=== PATIENT | female | born 1980 | race Caucasian/White ===

== ENCOUNTER 2017-10-22 05:33 | Outpatient (CLI) | payer BC ==
[~2017-10-22] VITALS: Ht 154.9 cm; Wt 56.7 kg
[~2017-10-22 05:33] MED LIST: OCP
[2017-10-22] MEDS ORDERED: VALA500T4 PO (11:40)
[2017-10-22] MEDS ORDERED: MULT-35 PO (11:40)
== END 2017-10-22 11:55 ==
LOC: PREOP 05:33
PROVIDERS: ATTEND Obstetrics & Gynecology
DX: Z01.818 Encounter for other preprocedural examination (principal); N93.8 Other specified abnormal uterine and vaginal bleeding; R19.09 Other intra-abdominal and pelvic swelling, mass and lump; D64.9 Anemia, unspecified

== ENCOUNTER 2017-10-24 10:56 | Day surgery (SDC) | payer BC ==
[~2017-10-24] VITALS: Ht 154.9 cm; Wt 56.7 kg
[~2017-10-24 10:56] MED LIST changes: +MULT-35 PO; +VALA500T4 PO
[2017-10-24] MEDS ORDERED: ceFAZolin INJECTION 1,000 MG in NS (IVPB) 50 ML IV ONE (11:15)
[2017-10-24 11:20] VITALS: BP 118/83
[2017-10-24] MEDS ORDERED: proPOfol 200 MG/20 ML (DIPRIVAN) VIAL IV ONE (11:41)
[2017-10-24] MEDS ORDERED: LIDOCAINE PF 2% 5 ML (XYLOCAINE) VIAL ONE (11:41)
[2017-10-24] MEDS ORDERED: SEVOFLURANE (ULTANE) 15 ML INHAL SOLN ONE (11:41)
[2017-10-24] MEDS ORDERED: ONDANSETRON 4 MG/2 ML (SDV) Z0FRAN ONE (11:41)
[2017-10-24] MEDS ORDERED: MIDAZOLAM 2 MG/2 ML (VERSED) VIAL ONE (11:41)
[2017-10-24] MEDS ORDERED: fentaNYL INJECTION 100 MCG/2 ML AMP ONE (11:41)
[2017-10-24] MEDS ORDERED: DEXAMETHASONE 10 MG/ML (DECADRON) 1 ML VIAL ONE (11:41)
[2017-10-24] MEDS: LACTATED RINGERS 1,000 ML IV PRN ×2 (11:50→13:56)
[2017-10-24] MEDS ORDERED: D5 LR IV SOLUTION 1,000 ML IV SCH (13:25)
--- NOTE | 2017-10-24 13:25 | Progress Note-Pre Operative ---
Pre-Operative Progress Note H&P Reviewed The H&P was reviewed, patient examined and no changes noted. Date Seen by Provider: Oct 24, 2017 Time Seen by Provider: 13:24 Date H&P Reviewed: Oct 24, 2017 Time H&P Reviewed: 13:24 Pre-Operative Diagnosis: DUB/Mass in uterus TOMMY LAWRENCE MD Oct 24, 2017 1:25 pm
--- NOTE | 2017-10-24 13:28 | Discharge Instructions ---
Discharge Instructions Discharge Medications New, Converted or Re-Newed RX: RX on Chart Patient Instructions Patient Instructions: as directed Return to The Hospital For: as directed Activity & Diet Discharge Diet: No Restrictions Activity as Tolerated: Yes Orders-Post D/C & Referrals Follow Up Appt: Call to make follow up appt. for patient in 2 weeks. Activity: as tolerated. Diet: As tolerated-Clear Liquids only if nauseated. May swim, shower or tub bathe as desired. Patient to return to the clinic as soon as possible for: Temperature greater than 101F, Severe Pain, Foul discharge from incision or vagina, Excessive Bleeding (more than a period). TOMMY LAWRENCE MD Oct 24, 2017 1:28 pm
[2017-10-24] MEDS ORDERED: ESTROGENS CONJ IV 25 MG/5 ML (PREMARIN) VIAL IVP ONE (13:30)
[2017-10-24] MEDS ORDERED: oxyCODONE/APAP 5/325MG (PERCOCET 5) TABLET PO PRN (13:30)
[2017-10-24] MEDS ORDERED: KETOROLAC 30 MG/ML VIAL IVP ONE (13:30)
[2017-10-24] MEDS ORDERED: PROMETHAZINE INJ 25 MG/ML (PHENERGAN) AMP IM ONE (13:30)
[2017-10-24] MEDS ORDERED: ONDANSETRON 4 MG/2 ML (SDV) Z0FRAN IVP PRN (13:30)
[2017-10-24] MEDS ORDERED: MEPERIDINE (DEMEROL) INJ 100 MG/ML IM ONE (13:30)
[2017-10-24] MEDS ORDERED: OXYC-471 PO (13:33)
[2017-10-24] MEDS ORDERED: morphine INJ 10 MG/ML 1ML (SYR OR VIAL) IVP PRN (14:15)
--- NOTE | 2017-10-24 14:19 | Progress Note-Post Operative ---
Post-Operative Progess Note Surgeon (s)/Spot Washer (s) Surgeon TOMMY LAWRENCE MD Spot Washer: none Pre-Operative Diagnosis DUB/Mass in uterus Post-Operative Diagnosis same with path pending Procedure & Operative Findings Date of Procedure 10/24/17 Procedure Performed/Findings IUD removal then Hysteroscopy with directed biopsy and D&C Anesthesia Type GETA Estimated Blood Loss Estimated blood loss (mL): min Specimens/Packing Specimens Removed Directed biopsies and endometrial curettings Packing: none TOMMY LAWRENCE MD Oct 24, 2017 2:19 pm
[2017-10-24 15:10] VITALS: BP 128/97
[2017-10-24 15:15] VITALS: BP 132/90
[2017-10-24 15:30] VITALS: BP 132/97
[2017-10-24 15:40] VITALS: BP 135/97
[2017-10-24 16:10] VITALS: BP 137/93
--- NOTE | 2017-10-24 16:45 | OPERATIVE REPORT ---
DATE OF SERVICE: 10/24/2017 PREOPERATIVE DIAGNOSES: Dysfunctional uterine bleeding and intrauterine mass. POSTOPERATIVE DIAGNOSES: Dysfunctional uterine bleeding and intrauterine mass with pathology pending, but would likely endometrial polyp and/or submucosal fibroid. OPERATIVE PROCEDURES: Hysteroscopy with directed biopsy and D and C. OPERATIVE DESCRIPTION: With the patient in the supine position under satisfactory general anesthesia, she was repositioned in the dorsal lithotomy position in the [facility] stirrups then prepped and draped in the usual fashion for vaginal surgery. Urinary bladder was drained with a straight catheter. A weighted speculum placed in the posterior fornix of vagina, cervix exposed and grasped anteriorly with single tooth tenaculum. Uterus was sounded to 9.5 cm with uterine sound. The cervix was then serially dilated with Demar dilators and then a hysteroscope was introduced and using LR as a distending medium, the endometrial cavity was examined. There was a protruding mass from the posterior uterine floor just distal and central from the right tubal ostium. There was a polypoid lesion emanating from the anterior lateral uterine wall just distal to the right tubal ostium as well. The polypoid mass was removed directly and sent to pathology labeled separately. The submucosal appearing prominence was biopsied in several pieces. This ended up being consistent with a possible uterine fibroid, pathology again is pending. The endometrial cavity was then sharply curettaged in all 4 quadrants to good uterine cry with removal of an additional aliquot of tissue. The hysteroscope was reintroduced and all blood clot and debris was evacuated from the uterus. There was no significant bleeding and no remaining abnormal appearing pathology. The hysteroscope was removed as was the tenaculum. There was some bleeding from the puncture sites. These were touched with silver nitrate to effect hemostasis. With hemostasis assured, sponge and needle counts correct. Estimated blood loss was minimal. The procedure was complete. The patient was uneventfully awakened from her general anesthesia and transferred to recovery room in stable condition with plans for discharge home PAR. Job ID: [id number] DocumentID: [id number] Dictated Date: 10/24/2017 14:01:32 Pattern Scratcher Date: 10/24/2017 16:45:00 Dictated By: TOMMY LAWRENCE MD
== END 2017-10-24 16:10 | disposition home or self-care (01) ==
LOC: SDC 10:56
PROVIDERS: ATTEND Obstetrics & Gynecology
DX: N93.8 Other specified abnormal uterine and vaginal bleeding (principal); D25.0 Submucous leiomyoma of uterus; N84.1 Polyp of cervix uteri
CPT/HCPCS: 36415; 84703; 87081; 88305

== ENCOUNTER 2018-03-25 08:00 | Outpatient (RCR) | payer BC ==
[~2018-03-25 08:00] MED LIST changes: +OXYC-471 PO
== END 2018-05-24 | disposition home or self-care (01) ==
PROVIDERS: ATTEND Family Medicine
DX: M54.2 Cervicalgia (principal); R51 Headache

== ENCOUNTER → 2018-09-02 | Outpatient (CLI) | payer BC ==
--- NOTE | 2018-09-02 21:23 | Diagnostic Imaging Report ---
INDICATION: Routine screening. Comparison is made with prior mammogram from 06/20/2014. 2-D and 3-D bilateral screening mammography was performed with a Computer Aided Detection (CAD) system. FINDINGS: Both breasts remain heterogeneously dense, limiting the sensitivity of mammography. The parenchymal pattern is stable. No mass or malignant-appearing microcalcifications are seen. The axillae are unremarkable. IMPRESSION: No mammographic features suspicious for malignancy are identified. ACR BI-RADS Category 1: Negative. Result letter will be mailed to the patient. Note: At least 10% of breast cancer is not imaged by mammography. Dictated by: Dictated on workstation # [id number]
== END ==
LOC: RAD 07:12
PROVIDERS: ATTEND Obstetrics & Gynecology
DX: Z12.31 Encounter for screening mammogram for malignant neoplasm of breast (principal)
CPT/HCPCS: 77067

== ENCOUNTER 2019-01-14 05:52 | Outpatient (CLI) | payer BC ==
[~2019-01-14] VITALS: Ht 154.9 cm; Wt 61.2 kg
[2019-01-14] MEDS ORDERED: MULT-178 PO (13:18)
== END 2019-01-14 13:34 | disposition home or self-care (01) ==
LOC: PREOP 05:52
PROVIDERS: ATTEND Obstetrics & Gynecology
DX: Z01.818 Encounter for other preprocedural examination (principal)

== ENCOUNTER 2019-01-15 13:15 | Day surgery (SDC) | payer BC ==
[2019-01-15] VITALS (8 sets, daily range): BP systolic 90–115; BP diastolic 58–95
[~2019-01-15] VITALS: Ht 154.9 cm; Wt 61.2 kg
[~2019-01-15 13:15] MED LIST changes: +MULT-178 PO
[2019-01-15] MEDS ORDERED: fentaNYL INJECTION 100 MCG/2 ML AMP ONE (13:54)
[2019-01-15] MEDS ORDERED: MIDAZOLAM 2 MG/2 ML (VERSED) VIAL ONE (14:01)
[2019-01-15] MEDS ORDERED: proPOfol 200 MG/20 ML (DIPRIVAN) VIAL IV ONE (14:09)
[2019-01-15] MEDS ORDERED: LIDOCAINE PF 2% 5 ML (XYLOCAINE) VIAL ONE (14:09)
[2019-01-15] MEDS ORDERED: ONDANSETRON 4 MG/2 ML (SDV) Z0FRAN ONE (14:09)
[2019-01-15] MEDS ORDERED: DEXAMETHASONE 10 MG/ML (DECADRON) 1 ML VIAL ONE (14:09)
[2019-01-15] MEDS ORDERED: LACTATED RINGERS 1,000 ML IV PRN (14:10)
[2019-01-15 14:11] LABS: BASOPHILS % (AUTO) 0 % (0-10); EOSINOPHILS # (AUTO) 0.1 10^3/uL (0.0-0.3); EOSINOPHILS % (AUTO) 2 % (0-10); HEMATOCRIT 38 % (35-52); HEMOGLOBIN 13.1 G/DL (11.5-16.0); LYMPHOCYTES # (AUTO) 1.9 X 10^3 (1.0-4.0); LYMPHOCYTES % (AUTO) 31 % (12-44); MEAN CORPUSCULAR HEMOGLOBIN 30 PG (25-34); MEAN CORPUSCULAR HGB CONC 34 G/DL (32-36); MEAN CORPUSCULAR VOLUME 89 FL (80-99); MEAN PLATELET VOLUME 9.7 FL (7.4-10.4); MONOCYTES # (AUTO) 0.5 X 10^3 (0.0-1.0); MONOCYTES % (AUTO) 8 % (0-12); NEUTROPHILS # (AUTO) 3.5 X 10^3 (1.8-7.8); NEUTROPHILS % (AUTO) 59 % (42-75); PLATELET COUNT 230 10^3/uL (130-400); RED CELL DISTRIBUTION WIDTH 12.2 % (10.0-14.5)
[2019-01-15] MEDS ORDERED: ceFAZolin INJECTION 1,000 MG in WATER (STERILE) FOR INJECTION 10 ML IV ONE (14:15)
--- NOTE | 2019-01-15 14:49 | Progress Note-Pre Operative ---
Pre-Operative Progress Note H&P Reviewed The H&P was reviewed, patient examined and no changes noted. Date Seen by Provider: Jan 15, 2019 Time Seen by Provider: 14:30 Date H&P Reviewed: Jan 15, 2019 Time H&P Reviewed: 14:30 Pre-Operative Diagnosis: missed TOMMY Araya MD Jan 15, 2019 14:49
[2019-01-15] MEDS ORDERED: D5 LR IV SOLUTION 1,000 ML IV SCH (14:50)
--- NOTE | 2019-01-15 14:50 | Progress Note-Post Operative ---
Post-Operative Progess Note Surgeon (s)/Overcoiler (s) Surgeon TOMMY LAWRENCE MD Overcoiler: no Pre-Operative Diagnosis missed ab Post-Operative Diagnosis same Procedure & Operative Findings Date of Procedure 01/15/19 Procedure Performed/Findings D&C obstetric Anesthesia Type geta Estimated Blood Loss Estimated blood loss (mL): 150 Specimens/Packing Specimens Removed POC TOMMY LAWRENCE MD Jan 15, 2019 14:50
[2019-01-15] MEDS ORDERED: SEVOFLURANE (ULTANE) 15 ML INHAL SOLN ONE (14:52)
--- NOTE | 2019-01-15 14:52 | Discharge Instructions ---
Discharge Instructions Activity & Diet Discharge Diet: No Restrictions Activity as Tolerated: No Orders-Post D/C & Referrals Follow Up Appt: Call to make follow up appt. for patient in 4 weeks. Activity: Rest for 24 hours, than as tolerated. Diet: As tolerated-Clear Liquids only if nauseated. shower or tub bathe as desired. No driving for 24 hours, no alcoholic beverages for 24 hours, and nothing per vagina (no tampons, douching, or intercoarse) for 2 weeks. Patient to return to the clinic as soon as possible for: Temperature greater than 101F, Severe Pain, Foul discharge from incision or vagina, Excessive Bleeding (more than a period). TOMMY LAWRENCE MD Jan 15, 2019 14:52
[2019-01-15] MEDS ORDERED: KETOROLAC 30 MG/ML VIAL ONE (14:57)
[2019-01-15] MEDS ORDERED: morphine INJ 10 MG/ML 1ML (SYR OR VIAL) IVP ONE (15:00)
[2019-01-15] MEDS ORDERED: ONDANSETRON 4 MG/2 ML (SDV) Z0FRAN IVP PRN ×2 (15:00)
[2019-01-15] MEDS ORDERED: MEPERIDINE (DEMEROL) INJ 50 MG/ML IVP ONE (15:00)
[2019-01-15] MEDS ORDERED: MEPERIDINE (DEMEROL) INJ 100 MG/ML IM ONE (15:00)
[2019-01-15] MEDS ORDERED: PROMETHAZINE INJ 25 MG/ML (PHENERGAN) AMP IM ONE (15:00)
[2019-01-15] MEDS ORDERED: KETOROLAC 30 MG/ML VIAL IVP ONE (15:00)
[2019-01-15] MEDS ORDERED: oxyCODONE/APAP 5/325MG (PERCOCET 5) TABLET PO PRN (15:00)
--- NOTE | 2019-01-28 10:33 | History & Physical ---
History and Physical Date Seen by Provider: Jan 15, 2019 Time Seen by Provider: 00:00 This patient was seen in my clinic on 01-12-19 and found to have a missed AB. records from that date include the entire current H&P for this patient. In addition an H&P from 08-10-18 is included in this record and is a complete H&P for this patient. The PN records included document any and all interim changes for this patient from the H&P of 08-10-18 thru 01-12-19. Patient is admitted via OP surgery for D&C treatment for her missed AB. I have review both the H&P from 08-10-18 and the complete H&P constituted by the [facility] record that was current and up to date through 01-12-19. missed AB Allergies and Home Medications Allergies Coded Allergies: Sulfa (Sulfonamide Antibiotics) (Verified Allergy, Severe, ANAPHYLAXIS, 01/14/19) Home Medications Multivitamin 1 Each Tablet, 1 EACH PO DAILY, (Reported) Patient Home Medication List Home Medication List Reviewed: Yes TOMMY LAWRENCE MD Jan 28, 2019 10:33
--- NOTE | 2019-01-28 15:37 | OPERATIVE REPORT ---
DATE OF SERVICE: 01/15/2019 PREOPERATIVE DIAGNOSIS: Missed . POSTOPERATIVE DIAGNOSIS: Missed . OPERATIVE PROCEDURE: D and C for missed AB. OPERATIVE DESCRIPTION: With the patient in the supine position under satisfactory general anesthesia, she was repositioned in the dorsal lithotomy position in the [facility] stirrups and then prepped and draped in the usual fashion for vaginal surgery. The urinary bladder was drained with Gill catheter. A weighted speculum was placed in the posterior fornix of vagina, the cervix exposed and grasped anteriorly with single tooth tenaculum. Uterus was sounded to 9.5 to 10 cm with uterine sound and then the cervix was then serially dilated with Demar dilators to a #20 Demar. A #9 curved suction curette was introduced and the uterine cavity curettaged with removal of a fairly moderate amount of trophoblastic and decidual appearing tissue, some blood clot, amniotic fluid and debris. The endometrial cavity was sharply curettaged in all 4 quadrants to a good uterine cry. The uterine cavity was evacuated a final time with suction curette. The tenaculum was then removed. There was no bleeding from the cervical os. There was no bleeding from the puncture sites. At this point, the procedure was complete. Sponge and needle counts were correct. Estimated blood loss was around 150 mL. The patient tolerated the procedure well and was uneventfully awakened from her general anesthesia and transferred to the recovery room in stable condition with plans for discharge home PAR. Job ID: [id number] DocumentID: [id number] Dictated Date: 01/28/2019 10:57:33 Desk Operator Date: 01/28/2019 15:35:53 Dictated By: TOMMY LAWRENCE MD
== END 2019-01-15 16:30 | disposition home or self-care (01) ==
LOC: SDC 13:15
PROVIDERS: ATTEND Obstetrics & Gynecology
DX: O73.1 Retained portions of placenta and membranes, without hemorrhage (principal); O02.1 Missed abortion; I69.359 Hemiplegia and hemiparesis following cerebral infarction affecting unspecified side; Z88.2 Allergy status to sulfonamides; Z79.899 Other long term (current) drug therapy
CPT/HCPCS: 36415; 85025; 86850; 86900; 86901; 87081; 88305

== ENCOUNTER → 2019-11-17 | Outpatient (CLI) | payer BC ==
--- NOTE | 2019-11-17 11:36 | Diagnostic Imaging Report ---
INDICATION: Routine screening. Comparison is made with prior exam from 09/02/2018 and 06/20/2014. 2-D and 3-D bilateral screening mammography was performed with CAD. Both breasts remain heterogeneously dense, limiting the sensitivity of mammography. The parenchymal pattern is stable. No mass or malignant appearing microcalcifications are seen. Axillae are unremarkable. IMPRESSION: BI-RADS Category 1 No mammographic features suspicious for malignancy are identified. ACR BI-RADS Category 1: Negative. Result letter will be mailed to the patient. Note: At least 10% of breast cancer is not imaged by mammography. Dictated by: Dictated on workstation # [id number]
== END ==
LOC: RAD 09:21
PROVIDERS: ATTEND Obstetrics & Gynecology
DX: Z12.31 Encounter for screening mammogram for malignant neoplasm of breast (principal)
CPT/HCPCS: 77063; 77067

== ENCOUNTER → 2021-01-26 | Outpatient (CLI) | payer BC ==
[~2021-01-26] MED LIST changes: -OXYC-471 PO; +OXYC1TAB11 PO
--- NOTE | 2021-01-26 10:58 | Diagnostic Imaging Report ---
INDICATION: Routine screening. Comparison is made with prior mammogram from 11/17/2019 and 09/02/2018. 2-D and 3-D bilateral screening mammography was performed with CAD. Both breasts remain heterogeneously dense, limiting the sensitivity of mammography. The parenchymal pattern is stable. No mass is identified. No malignant-appearing microcalcifications are seen. Axillae are unremarkable. IMPRESSION: BI-RADS Category 1 No mammographic features suspicious for malignancy are identified. ACR BI-RADS Category 1: Negative. Result letter will be mailed to the patient. Note: At least 10% of breast cancer is not imaged by mammography. Dictated by: Dictated on workstation # [id number]
== END ==
LOC: RAD 07:33
PROVIDERS: ATTEND Obstetrics & Gynecology
DX: Z12.31 Encounter for screening mammogram for malignant neoplasm of breast (principal)
CPT/HCPCS: 77063; 77067

== ENCOUNTER 2021-05-10 09:11 | Outpatient (RCR) | payer BC | END 2021-05-11 | disposition home or self-care (01) | PROVIDERS: ATTEND Family Medicine | DX: M54.2 Cervicalgia (principal); M25.512 Pain in left shoulder; M25.511 Pain in right shoulder; R51.9 Headache, unspecified ==

== ENCOUNTER 2021-06-07 08:00 | Outpatient (RCR) | payer BC | END 2021-06-11 | disposition home or self-care (01) | PROVIDERS: ATTEND Family Medicine | DX: M54.2 Cervicalgia (principal); M25.519 Pain in unspecified shoulder; R51.9 Headache, unspecified ==

== ENCOUNTER 2021-06-27 08:48 | Outpatient (RCR) | payer BC | END 2021-07-09 | disposition home or self-care (01) | PROVIDERS: ATTEND Family Medicine | DX: M54.2 Cervicalgia (principal); M25.519 Pain in unspecified shoulder; R51.9 Headache, unspecified ==

== ENCOUNTER 2021-08-03 08:00 | Outpatient (RCR) | payer BC | END 2021-08-09 | disposition home or self-care (01) | PROVIDERS: ATTEND Family Medicine | DX: M54.2 Cervicalgia (principal); M25.519 Pain in unspecified shoulder; R51.9 Headache, unspecified ==

== ENCOUNTER 2021-08-10 08:04 | Outpatient (RCR) | payer BC | END 2021-08-10 10:25 | disposition home or self-care (01) | PROVIDERS: ATTEND Family Medicine | DX: M54.2 Cervicalgia (principal); M25.519 Pain in unspecified shoulder; R51.9 Headache, unspecified ==

== ENCOUNTER → 2021-08-13 | Outpatient (CLI) | payer BC ==
--- NOTE | 2021-08-13 09:38 | Diagnostic Imaging Report ---
INDICATION: Chest pain PA and lateral chest Heart size and pulmonary vascularity are normal. Lungs are clear. There are no effusions or pneumothoraces. IMPRESSION: No acute abnormalities in the chest Dictated by: Dictated on workstation # [id number]
== END ==
LOC: CARD 09:30
PROVIDERS: ATTEND Family Medicine
DX: R07.89 Other chest pain (principal); Z86.16 Personal history of COVID-19
CPT/HCPCS: 71046; 93306

== ENCOUNTER → 2021-08-17 | Outpatient (CLI) | payer BC ==
[~2021-08-17] MED LIST changes: +HOLD METFORMIN - RECEIVED CONTRAST 20 ML VIAL IV SCH; +IOHEXOL 350 MG/ML 100 ML (OMNIPAQUE 350) VIAL IV ONE; +NS 100 ML (IVPB) BAG IV ONE
[2021-08-17] MEDS: CATHETER FLUSH 10 ML SYR IV PRN ×2 (10:01→10:03)
--- NOTE | 2021-08-17 10:45 | Diagnostic Imaging Report ---
EXAMINATION: CT angiography of the chest. TECHNIQUE: Contrast enhanced thin section helical images were obtained through the chest with intravenous contrast timed for the optimal opacification of the arterial structures per CTA protocol. Post-processing, reconstructions and interpretation of angiographic images of the vessels was performed. 3D MIP reconstructions were performed and reviewed. All CT scans use one or more of the following dose optimizing techniques: automated exposure control, MA and/or KvP adjustment based on a patient size and exam type, or iterative reconstruction. HISTORY: Chest pain after Covid infection. COMPARISON: None available. FINDINGS: Vascular: No filling defects within the pulmonary arteries. Thoracic aorta is normal in caliber. Thyroid: The thyroid is normal. Mediastinum: Heart size is normal without significant pericardial effusion. No suspicious lymphadenopathy. Lungs and airways: The lungs are clear without consolidation, pleural effusion, or pneumothorax. The airways are normal. Upper abdomen: The subphrenic structures are normal. Musculoskeletal: No suspicious osseous lesion or compression fracture. IMPRESSION: 1. No findings of pulmonary embolus or other acute abnormality in the chest. Dictated by: Dictated on workstation # [id number]
== END ==
LOC: CARD 10:00
PROVIDERS: ATTEND Family Medicine
DX: R07.89 Other chest pain (principal); Z86.16 Personal history of COVID-19
CPT/HCPCS: 71275

== ENCOUNTER → 2021-08-28 | Outpatient (CLI) | payer BC ==
[~2021-08-28] MED LIST changes: -HOLD METFORMIN - RECEIVED CONTRAST 20 ML VIAL IV SCH; -IOHEXOL 350 MG/ML 100 ML (OMNIPAQUE 350) VIAL IV ONE; -NS 100 ML (IVPB) BAG IV ONE; +RT-ALBUTEROL SULF 2.5 MG/3 ML PRE-MIX VIAL INH ONE
== END ==
LOC: RT 09:15
PROVIDERS: ATTEND Nurse Practitioner Family
DX: R09.1 Pleurisy (principal); R06.09 Other forms of dyspnea; Z86.16 Personal history of COVID-19
CPT/HCPCS: 94060; 94726; 94729

== ENCOUNTER 2021-10-23 11:01 | Day surgery (SDC) | payer BC ==
[2021-10-23] VITALS (9 sets, daily range): BP systolic 80–125; BP diastolic 53–92
[~2021-10-23] VITALS: Ht 154.9 cm; Wt 63.6 kg
[~2021-10-23 11:01] MED LIST changes: -RT-ALBUTEROL SULF 2.5 MG/3 ML PRE-MIX VIAL INH ONE
[2021-10-23] MEDS ORDERED: fentaNYL INJ 100 MCG/2 ML AMP ONE (11:44)
[2021-10-23] MEDS ORDERED: MIDAZOLAM 2 MG/2 ML (VERSED) VIAL ONE (11:44)
[2021-10-23] MEDS ORDERED: proPOfol 200 MG/20 ML (DIPRIVAN) VIAL IV ONE (11:44)
[2021-10-23] MEDS ORDERED: LIDOCAINE PF 2% 5 ML (XYLOCAINE) VIAL ONE (11:44)
[2021-10-23] MEDS ORDERED: ONDANSETRON 4 MG/2 ML (SDV) Z0FRAN ONE (11:44)
[2021-10-23] MEDS ORDERED: ceFAZolin INJECTION 1,000 MG VIAL IV ONE (11:45)
[2021-10-23] MEDS ORDERED: LACTATED RINGERS 1,000 ML IV PRN (11:45)
[2021-10-23] MEDS ORDERED: ceFAZolin INJECTION 1,000 MG ONE (12:05)
[2021-10-23 12:07] LABS: BASOPHILS % (AUTO) 1 % (0-10); EOSINOPHILS # (AUTO) 0.1 10^3/uL (0.0-0.3); EOSINOPHILS % (AUTO) 2 % (0-10); HEMATOCRIT 36 % (35-52); HEMOGLOBIN 12.4 g/dL (11.5-16.0); LYMPHOCYTES # (AUTO) 1.7 10^3/uL (1.0-4.0); LYMPHOCYTES % (AUTO) 33 % (12-44); MEAN CORPUSCULAR HEMOGLOBIN 31 pg (25-34); MEAN CORPUSCULAR HGB CONC 34 g/dL (32-36); MEAN CORPUSCULAR VOLUME 90 fL (80-99); MEAN PLATELET VOLUME 9.7 fL (9.0-12.2); MONOCYTES # (AUTO) 0.5 10^3/uL (0.0-1.0); MONOCYTES % (AUTO) 9 % (0-12); NEUTROPHILS # (AUTO) 2.9 10^3/uL (1.8-7.8); NEUTROPHILS % (AUTO) 55 % (42-75); PLATELET COUNT 204 10^3/uL (130-400); WHITE BLOOD COUNT 5.2 10^3/uL (4.3-11.0)
--- NOTE | 2021-10-23 12:11 | Progress Note-Pre Operative ---
Pre-Operative Progress Note H&P Reviewed The H&P was reviewed, patient examined and no changes noted. Date Seen by Provider: Oct 23, 2021 Time Seen by Provider: 12:11 Date H&P Reviewed: Oct 23, 2021 Time H&P Reviewed: 12:11 Pre-Operative Diagnosis: Blighted ovum/missed AB TOMMY LAWRENCE MD Oct 23, 2021 12:11
--- NOTE | 2021-10-23 12:12 | Progress Note-Post Operative ---
Post-Operative Progess Note Surgeon (s)/Student Services Coordinator (s) Surgeon TOMMY LAWRENCE MD Student Services Coordinator: None Pre-Operative Diagnosis Blighted ovum/missed AB Post-Operative Diagnosis Same with pathology pending Procedure & Operative Findings Date of Procedure 10/23/21 Procedure Performed/Findings D&C for first trimester missed AB/viable Anesthesia Type General Estimated Blood Loss Estimated blood loss (mL): 100 cc Specimens/Packing Specimens Removed Uterine contents/products of conception TOMMY LAWRENCE MD Oct 23, 2021 12:12
--- NOTE | 2021-10-23 12:14 | Discharge Inst-Surgical ---
Discharge Inst-Surgical Depart Medication/Instructions New, Converted or Re-Newed RX: Other Consults/Follow Up Patient Instructions: As directed Orders & Referrals Follow Up Appt: Call to make follow up appt. for patient in 2 weeks. Activity: Rest for 24 hours, than as tolerated. Patient may use her own Motrin/ibuprofen up to 800 mg every 6 hours as needed cramps Diet: As tolerated shower or tub bathe as desired. No driving for 24 hours, no alcoholic beverages for 24 hours, and nothing per vagina (no tampons, douching, or intercoarse) for 2 weeks. Patient to return to the clinic as soon as possible for: Temperature greater than 101F, Severe Pain, Foul discharge from incision or vagina, Excessive Bleeding (more than a period). Activity Activity as Tolerated: No Diet Discharge Diet: No Restrictions TOMMY LAWRENCE MD Oct 23, 2021 12:14
[2021-10-23] MEDS ORDERED: ONDANSETRON 4 MG/2 ML (SDV) Z0FRAN IVP PRN ×2 (12:15→12:45)
[2021-10-23] MEDS ORDERED: fentaNYL INJ 100 MCG/2 ML AMP IVP PRN (12:15)
[2021-10-23] MEDS ORDERED: D5 LR IV SOLUTION 1,000 ML IV SCH (12:15)
[2021-10-23] MEDS ORDERED: oxyCODONE/APAP 5/325MG (PERCOCET 5) TABLET PO PRN (12:15)
[2021-10-23] MEDS ORDERED: KETOROLAC 30 MG/ML VIAL IVP ONE (12:15)
[2021-10-23] MEDS ORDERED: methylPREDNISolone 125 MG (Solu-MEDROL) VIAL ONE (12:17)
[2021-10-23] MEDS ORDERED: SEVOFLURANE (ULTANE) 15 ML INHAL SOLN ONE (12:32)
[2021-10-23] MEDS ORDERED: morphine INJ 10 MG/ML 1ML (SYR OR VIAL) IVP ONE (12:45)
--- NOTE | 2021-10-23 12:53 | Anesthesia-General Post-Op ---
General Patient Condition Mental Status/LOC: Same as Preop Cardiovascular: Satisfactory Nausea/Vomiting: Absent Respiratory: Satisfactory Pain: Controlled Complications: Absent Post Op Complications Complications None Follow Up Care/Instructions Patient Instructions None needed. Anesthesia/Patient Condition Patient Condition Patient is doing well in PACU, no complaints, stable vital signs, no apparent adverse anesthesia problems. ZOYA EPPS DO Oct 23, 2021 12:53
--- NOTE | 2021-10-23 23:51 | OPERATIVE REPORT ---
DATE OF SERVICE: 10/23/2021 PREOPERATIVE DIAGNOSES: Missed /blighted ovum in first trimester. POSTOPERATIVE DIAGNOSES: Missed /blighted ovum in first trimester. OPERATIVE PROCEDURE: D and C for surgical treatment of a missed . OPERATIVE DESCRIPTION: With the patient in supine position under satisfactory general anesthesia, she was repositioned in dorsal lithotomy position [facility] and prepped and draped in usual fashion for vaginal surgery. Urinary bladder was drained with a straight catheter. A weighted speculum placed in posterior fornix of vagina, cervix exposed and grasped anteriorly with single tooth tenaculum. Uterus was sounded to 14 cm with uterine sound. The cervix was then serially dilated with Demar dilators to accommodate a #9 Hegar dilator and #9 curved suction curette was then introduced and large amount of trophoblastic and decidual appearing tissue as well as blood clot, amniotic fluid and debris was evacuated. The endometrial cavity was then sharply curettaged in all 4 quadrants to good uterine cry. The curved suction curette was reintroduced and all blood clot and debris evacuated from the uterine cavity. The suction curette was removed. There was no bleeding from the cervical os. The tenaculum was removed. There was no bleeding from the right puncture site puncture site was oozing, so that was touched with silver nitrate to effect hemostasis, now with hemostasis assured. Sponge and needle counts correct. The procedure was terminated. The operative instrument and sponge counts were complete and correct. Blood loss was around 100 mL. The patient tolerated the procedure well and was transferred to recovery room after being uneventfully awakened from her general anesthesia. The patient tolerated the procedure well. Job ID: [id number] DocumentID: [id number] Dictated Date: 10/23/2021 13:23:04 Art Dealer Date: 10/23/2021 23:50:22 Dictated By: TOMMY LAWRENCE MD
== END 2021-10-23 14:22 | disposition home or self-care (01) ==
LOC: SDC 11:01
PROVIDERS: ATTEND Obstetrics & Gynecology
DX: O02.1 Missed abortion (principal); Z87.891 Personal history of nicotine dependence
CPT/HCPCS: 36415; 85025; 87081

== ENCOUNTER → 2022-04-03 | Outpatient (CLI) | payer BC ==
--- NOTE | 2022-04-03 09:43 | Diagnostic Imaging Report ---
INDICATION: Routine screening. Comparison is made with prior mammogram 01/26/2021 and 11/17/2019. 2-D and 3-D bilateral screening mammography was performed with CAD. Both breasts are heterogeneously dense, limiting the sensitivity of mammography. The parenchymal pattern is stable. No mass or malignant-appearing microcalcifications are seen. Axillae are unremarkable. IMPRESSION: No mammographic features suspicious for malignancy are identified. ACR BI-RADS Category 1: Negative. Result letter will be mailed to the patient. Note: At least 10% of breast cancer is not imaged by mammography. BI-RADS Category 1 Dictated by: Dictated on workstation # [id number]
== END ==
LOC: RAD 07:16
PROVIDERS: ATTEND Obstetrics & Gynecology
DX: Z12.31 Encounter for screening mammogram for malignant neoplasm of breast (principal)
CPT/HCPCS: 77063; 77067

== ENCOUNTER 2022-07-03 07:52 | Outpatient (RCR) | payer BC | END 2022-07-09 | disposition home or self-care (01) | PROVIDERS: ATTEND Physical Therapist | DX: M54.2 Cervicalgia (principal); R51.9 Headache, unspecified; J02.9 Acute pharyngitis, unspecified ==

== ENCOUNTER 2022-08-06 11:08 | Outpatient (RCR) | payer BC | END 2022-08-09 | disposition home or self-care (01) | PROVIDERS: ATTEND Physical Therapist | DX: M54.2 Cervicalgia (principal); R51.9 Headache, unspecified; J02.9 Acute pharyngitis, unspecified ==

== ENCOUNTER 2022-09-06 08:00 | Outpatient (RCR) | payer BC | END 2022-09-08 | disposition home or self-care (01) | PROVIDERS: ATTEND Physical Therapist | DX: R51.9 Headache, unspecified (principal); M54.2 Cervicalgia ==

== ENCOUNTER 2022-10-04 08:00 | Outpatient (RCR) | payer BC | END 2022-10-09 | disposition home or self-care (01) | PROVIDERS: ATTEND Physical Therapist | DX: M54.2 Cervicalgia (principal); R51.9 Headache, unspecified ==

== ENCOUNTER 2022-11-01 08:00 | Outpatient (RCR) | payer BC | END 2022-11-08 | disposition home or self-care (01) | PROVIDERS: ATTEND Physical Therapist | DX: M54.2 Cervicalgia (principal); R51.9 Headache, unspecified ==

== ENCOUNTER → 2022-11-26 | Outpatient (CLI) | payer BC ==
[~2022-11-26] MED LIST changes: +GADOTERATE 0.5 MMOL/ML (CLARISCAN) 15 ML VIAL IV ONE
--- NOTE | 2022-11-26 16:33 | Diagnostic Imaging Report ---
CLINICAL INDICATION: Patient with increasing migraines. EXAM: MRI of the brain performed without and with 15 cc of Clariscan IV contrast. Sequences include axial DWI, ADC map, coronal gradient echo, axial T2, axial FLAIR, axial T1, axial T1 post IV contrast, coronal T1 fat-sat post IV contrast, and sagittal T1 post IV contrast. COMPARISON: None. FINDINGS: There is no evidence of acute cerebral infarct, intracranial hemorrhage, or gross mass effect. There is no abnormal IV contrast enhancement. There are a few punctate areas of high T2 signal involving the subcortical bilateral frontal lobe regions which measure up to 3 mm. The brain parenchymal volume appears appropriate for patient's age. There is normal plascencia-white matter distinction. There is no significant midline shift or herniation. The visualized [place] vascular structures are unremarkable. The pituitary gland, sella, and suprasellar regions are unremarkable as visualized. There is no evidence of hydrocephalus. The basal cisterns are unremarkable. The skull, extracranial soft tissue, and orbits are unremarkable. The paranasal sinuses are unremarkable. Temporal bones show no significant abnormality. IMPRESSION: 1: There are a few punctate areas of high T2 signal involving the bilateral frontal lobe subcortical regions, which are nonspecific. These findings may be seen in patients with chronic migraine headaches. 2: Otherwise, unremarkable MRI of the brain. Dictated by: Dictated on workstation # [id number]
== END ==
LOC: RAD 14:00
PROVIDERS: ATTEND Nurse Practitioner Family
DX: G43.109 Migraine with aura, not intractable, without status migrainosus (principal)
CPT/HCPCS: 70553

== ENCOUNTER 2022-12-06 21:06 | Emergency (ER) | payer BC ==
[~2022-12-06] VITALS: Ht 168 cm; Wt 69.9 kg
[~2022-12-06 21:06] MED LIST changes: -GADOTERATE 0.5 MMOL/ML (CLARISCAN) 15 ML VIAL IV ONE
[2022-12-06 21:31] VITALS: BP 133/81
[2022-12-06] MEDS ORDERED: diphenhydrAMINE INJ 50 MG/ML VIAL IV STA (22:06)
[2022-12-06] MEDS ORDERED: methylPREDNISolone INJ 125 MG VIAL IV STA (22:06)
[2022-12-06] MEDS ORDERED: FAMOTIDINE INJ 20MG/2ML VIAL IV STA (22:06)
[2022-12-06] MEDS ORDERED: LACTATED RINGERS 1,000 ML IV ONE (22:15)
[2022-12-06 22:43] LABS: BASOPHILS % (AUTO) 0 % (0-10); EOSINOPHILS # (AUTO) 0.3 10^3/uL (0.0-0.3); EOSINOPHILS % (AUTO) 3 % (0-10); HEMATOCRIT 43 % (35-52); HEMOGLOBIN 14.5 g/dL (11.5-16.0); LYMPHOCYTES % (AUTO) 10 % (12-44); MEAN CORPUSCULAR HEMOGLOBIN 30 pg (25-34); MEAN CORPUSCULAR HGB CONC 34 g/dL (32-36); MEAN CORPUSCULAR VOLUME 88 fL (80-99); MONOCYTES # (AUTO) 0.5 10^3/uL (0.0-1.0); MONOCYTES % (AUTO) 5 % (0-12); NEUTROPHILS # (AUTO) 8.1 10^3/uL (1.8-7.8); NEUTROPHILS % (AUTO) 82 % (42-75); PLATELET COUNT 236 10^3/uL (130-400); WHITE BLOOD COUNT 9.9 10^3/uL (4.3-11.0)
[2022-12-06 22:51] LABS: ALBUMIN 4.2 GM/DL (3.2-4.5)
[2022-12-06 22:52] LABS: POTASSIUM 3.8 MMOL/L (3.6-5.0)
[2022-12-06 22:53] LABS: CALCIUM 9.1 MG/DL (8.5-10.1)
[2022-12-06 22:54] LABS: TOTAL PROTEIN 6.9 GM/DL (6.4-8.2)
[2022-12-06 22:56] LABS: BILIRUBIN,TOTAL 0.7 MG/DL (0.1-1.0)
[2022-12-06 22:58] LABS: CREATININE SERUM 0.76 MG/DL (0.60-1.30)
[2022-12-06 23:04] LABS: ERYTHROCYTE SEDIMENTATION RATE 7 MM/HR (0-20)
[2022-12-06] MEDS ORDERED: FAMO40TA72 PO (23:22)
[2022-12-06] MEDS ORDERED: PRD20T PO (23:22)
--- NOTE | 2022-12-06 23:22 | ED Integumentary General ---
General Chief Complaint: Bite-Animal/Human/Insect Stated Complaint: SPIDER BITE/FEVER Nursing Triage Note: Pt stated that mo was btien by a brown rac bite yesterday on her upper back, seen a primary and was given antiobiotics. Pt stated today still dont feel better, warm, cold, feverish, and tired. Allergies and Home Medications Allergies Coded Allergies: Sulfa (Sulfonamide Antibiotics) (Verified Allergy, Severe, ANAPHYLAXIS, 01/14/19) Patient Home Medication List Multivitamin (Multiple Vitamins) 1 Each Tablet, 1 EACH PO DAILY, (Reported) Entered as Reported by: BELL JONES on 01/14/19 1318 Past Gsoqpfb-Ecuvia-Bptapt Hx Patient Social History Pt feels they are or have been: No Immunizations Up To Date First/Initial COVID19 Vaccinat: 2020 Second COVID19 Vaccination Diego: 2020 Seasonal Allergies Seasonal Allergies: Yes Past Medical History Surgeries: Yes (exploratory lap in 1999, wisdom teeth, D&C AND HYSTEROSCOPY) Respiratory: No Currently Using CPAP: No Currently Using BIPAP: No Cardiac: No Neurological: Yes (FEB 1999) Stroke Reproductive Disorders: Yes (DUB, INTRAUTERINE MASS) Female Reproductive Disorders: Denies, Menstrual Problems 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11 10^6/uL Hemoglobin 14.5 11.5-16.0 g/dL Hematocrit 43 35-52 % Mean Corpuscular Volume 88 80-99 fL Mean Corpuscular Hemoglobin 30 25-34 pg Mean Corpuscular Hemoglobin Concent 34 32-36 g/dL Red Cell Distribution Width 11.9 10.0-14.5 % Platelet Count 236 130-400 10^3/uL Mean Platelet Volume 10.0 9.0-12.2 fL Immature Granulocyte % (Auto) 0 % Neutrophils (%) (Auto) 82 H 42-75 % Lymphocytes (%) (Auto) 10 L 12-44 % Monocytes (%) (Auto) 5 0-12 % Eosinophils (%) (Auto) 3 0-10 % Basophils (%) (Auto) 0 0-10 % Neutrophils # (Auto) 8.1 H 1.8-7.8 10^3/uL Lymphocytes # (Auto) 1.0 1.0-4.0 10^3/uL Monocytes # (Auto) 0.5 0.0-1.0 10^3/uL Eosinophils # (Auto) 0.3 0.0-0.3 10^3/uL Basophils # (Auto) 0.0 0.0-0.1 10^3/uL Immature Granulocyte # (Auto) 0.0 0.0-0.1 10^3/uL Erythrocyte Sedimentation Rate 7 0-20 MM/HR Sodium Level 138 135-145 MMOL/L Potassium Level 3.8 3.6-5.0 MMOL/L Chloride Level 106 98-107 MMOL/L Carbon Dioxide Level 22 21-32 MMOL/L Anion Gap 10 5-14 MMOL/L Blood Urea Nitrogen 11 7-18 MG/DL Creatinine 0.76 0.60-1.30 MG/DL Estimat Glomerular Filtration Rate 100 BUN/Creatinine Ratio 14 Glucose Level 96 70-105 MG/DL Calcium Level 9.1 8.5-10.1 MG/DL Corrected Calcium 8.9 8.5-10.1 MG/DL Total Bilirubin 0.7 0.1-1.0 MG/DL Aspartate Amino Transf (AST/SGOT) 15 5-34 U/L Alanine Aminotransferase (ALT/SGPT) 16 0-55 U/L Alkaline Phosphatase 52 40-136 U/L C-Reactive Protein High Sensitivity 0.17 0.00-0.50 MG/DL Total Protein 6.9 6.4-8.2 GM/DL Albumin 4.2 3.2-4.5 GM/DL Serum Test, Qualitative NEGATIVE NEGATIVE My Orders Orders - SARTHAK MOSS DO Ed Iv/Invasive Line Start (12/06/22 22:06) Monitor-Rhythm Ecg Trace Only (12/06/22 22:06) Cbc With Automated Diff (12/06/22 22:06) Comprehensive Metabolic Panel (12/06/22 22:06) Hs C Reactive Protein (12/06/22 22:06) Hcg,Qualitative Serum (12/06/22 22:06) Erythrocyte Sedimentation Rate (12/06/22 22:06) Ed Iv/Invasive Line Start (12/06/22 22:06) Lactated Ringers (Lr 1000 Ml Iv Solution (12/06/22 22:15) Famotidine Injection (Pepcid Injection) (12/06/22 22:06) Diphenhydramine Injection (Benadryl Inje (12/06/22 22:06) Methylprednisolone Sod Succ (Solu-Medrol (12/06/22 22:06) Medications Given in ED Current Medications Medications Dose Ordered Sig/Chata Route Start Time Stop Time Status Last Admin Dose Admin Lactated Ringer's 1,000 ml @ 0 mls/hr Q0M ONCE IV 12/06/22 22:15 12/06/22 22:16 DC 12/06/22 22:33 0 MLS/HR Vital Signs/I&O 12/06/22 12/06/22 21:30 21:31 Temp 37.1 37.1 Pulse 101 101 Resp 20 20 B/P (MAP) 133/81 (98) 133/81 (98) Pulse Ox 99 99 Blood Pressure Mean: 98 Departure Impression Primary Impression: Brown recluse spider bite Additional Impression: GENERALIZED REACTION TO SPIDER BITE Disposition: 01 HOME, SELF-CARE Condition: Stable Departure-Patient Inst. Decision time for Depature: 23:20 Referrals: JESSICA WATKINS MD (PCP/Family) Primary Care Physician Patient Instructions: Spider bites Add. Discharge Instructions: CONTINUE DOXYCYCLINE PRESCRIBED CONTINUE YOUR ZYRTEC DAILY YOU MAY TAKE BENADRYL AT NIGHT IF NEEDED INCREASE YOUR CLEAR LIQUID INTAKE, ESPECIALLY WATER AND GATORADE FOLLOW UP WITH YOUR DR ON FRIDAY FOR FURTHER CARE, RETURN TO ER IF SYMPTOMS WORSEN All discharge instructions reviewed with patient and/or family. Voiced understanding. Scripts Famotidine (Pepcid) 40 Mg Tablet 40 MG PO DAILY, #10 TAB Prov: SARTHAK MOSS DO 12/06/22 Prednisone (Prednisone) 20 Mg Tab 40 MG PO DAILY, #6 TAB 0 Refills Prov: SARTHAK MOSS DO 12/06/22 SARTHAK MOSS DO Dec 06, 2022 23:22
== END 2022-12-07 00:17 | disposition home or self-care (01) ==
LOC: EDUNIT# 21:06 → ER 21:08
DX: T63.331A Toxic effect of venom of brown recluse spider, accidental (unintentional), initial encounter (principal)
CPT/HCPCS: 36415; 80053; 84703; 85025; 85652; 86141; 93041; 96374; 96375

== ENCOUNTER → 2022-12-09 | Outpatient (RCR) | payer BC ==
[~2022-12-09] MED LIST changes: +FAMO40TA72 PO; +PRD20T PO
== END | disposition home or self-care (01) ==
PROVIDERS: ATTEND Physical Therapist
DX: M54.2 Cervicalgia (principal); R51.9 Headache, unspecified

== ENCOUNTER → 2023-04-17 | Outpatient (CLI) | payer BC ==
--- NOTE | 2023-04-17 09:56 | Diagnostic Imaging Report ---
INDICATION: Routine screening. Comparison is made with prior mammogram from 04/03/2022 and 01/26/2021. 2-D and 3-D bilateral screening mammography was performed with CAD. Both breasts are heterogeneously dense, limiting the sensitivity of mammography. The parenchymal pattern is stable. No mass or malignant-appearing microcalcifications are identified. Axillae are unremarkable. IMPRESSION: No mammographic features suspicious for malignancy are identified. ACR BI-RADS Category 1: Negative. Result letter will be mailed to the patient. Note: At least 10% of breast cancer is not imaged by mammography. BI-RADS Category 1 Dictated by: Dictated on workstation # [id number]
== END ==
LOC: RAD 07:16
PROVIDERS: ATTEND Family Medicine
DX: Z12.31 Encounter for screening mammogram for malignant neoplasm of breast (principal)
CPT/HCPCS: 77063; 77067